=== PATIENT | male | born 1990 | race Caucasian/White ===

== ENCOUNTER 2021-01-01 08:13 | Emergency (ER) | payer OTHER, SELFPAY ==
--- NOTE | ~2021-01-01 | XR_ITS ---
EXAMINATION: XR chest 2V DATE: 01/01/2021 11:05 INDICATION: Shortness of breath TECHNIQUE: PA and lateral views of the chest were obtained. COMPARISON: None FINDINGS: The lungs are clear with no focal airspace opacities, pulmonary edema, pleural effusion or pneumothor ax. The cardiomediastinal silhouette is normal. Mild thoracic kyphosis with mild anterior wedging at T6, T7 and T12. IMPRESSION: 1. No acute cardiopulmonary disease. Reviewed, dictated and finalized at location A.
[2021-01-01 08:24] VITALS: BP 140/82; PULSE 71; RESP 20; TEMP 37.2; O2SAT 100
[2021-01-01 10:18] VITALS: BP 133/81; PULSE 71; RESP 15; O2SAT 95; O2SAT 96
[2021-01-01 10:34] LABS: Basophils Percent Auto 0.2 % (0.2-1.2); Eosinophils Absolute Auto 0.1 K/mm3 (0-0.3); Eosinophils Percent Auto 1.2 % (0-4.4); Hematocrit 46.6 % (42.0-52.0); Hemoglobin 16.2 g/dL (14.0-18.0); Immature Granulocyte Absolute 0.11 K/mm3 (0.00-0.031); Immature Granulocyte Percent A 1.1 % (0-0.5); Lymphocytes Absolute Auto 1.28 K/mm3 (0.9-3.2); Lymphocytes Percent Auto 13.2 % (18.3-44.2); Mean Corpuscular HGB Conc 34.8 g/dl (32-36); Mean Corpuscular Hemoglobin 29.7 pg (26-34); Mean Corpuscular Volume 85.3 fl (80-100); Mean Platelet Volume 9.5 fl (7.4-10.4); Monocytes Absolute Auto 0.5 K/mm3 (0.1-0.6); Neutrophils Absolute Auto 7.7 K/mm3 (1.3-6.7); Neutrophils Percent Auto 79.3 % (45.5-73.1); Platelet Count Result 201 k/mm3 (150-375); Red Blood Count 5.46 M/mm3 (4.6-6.20); White Blood Count 9.7 K/mm3 (4.5-10.0)
--- NOTE | 2021-01-01 10:40 | ED.URI ---
HPI - URI/Sore Throat General Chief Complaint: Upper Respiratory Infection Stated Complaint: fever, cough Time Seen by Provider: 01/01/21 09:53 Source: patient Mode of arrival: ambulatory Limitations: no limitations History of Present Illness HPI Narrative: Patient is a 30 year old male who presents with multiple symptoms. He reports initially feeling poorly with fever on Sat. and body aches. He reports chills and sweats. He reports dry cough, sore throat. He reports feeling slightly better on Tuesday with recurring symptoms with shortness of breath with exertion starting Tuesday. He reports being seen at and tested for strep, influenza and Covid with negative results. He reports chest xray negative but started on abx with concerns for pneumonia. Patient continues to reports intermittent fevers, dry cough and shortness of breath. He denies chest pain. He reports no known exposure to Covid but reports he is not vaccinated at this time. He denies significant medical history. He reports taking otc meds without relief. MD elicited complaint: fever, cough and other (shortness of breath) Review of Systems Review of Systems: Narrative: CONSTITUTIONAL: Reports fever, chills, sweats and generalized weakness. EYES: Denies visual changes, redness, or discharge. ENT: Denies rhinorrhea, congestion, reports sore throat that has now resolved CARDIOVASCULAR: Denies chest pain, palpitations, or edema. RESPIRATORY: Reports cough and dyspnea. GASTROINTESTINAL: Denies abdominal pain, nausea, vomiting, or diarrhea. GENITOURINARY: Denies dysuria or hematuria. SKIN: Denies rash or itching. MUSCULOSKELETAL: Denies back pain, joint pain, or myalgia. NEUROLOGIC: Denies headache, numbness, dizziness. PSYCHIATRIC: Denies anxiety or depression. [facility] Past Medical History Medical History (Updated 01/01/21 @ 12:39 by RICKEY Kiran) No significant past medical history Surgical History Surgical History (Updated 01/01/21 @ 10:46 by RICKEY Kiran) No significant past surgical history Family History Family History (Updated 01/01/21 @ 10:46 by RICKEY Kiran) Other Hypertension Social History Social History (Updated 01/01/21 @ 10:51 by RICKEY Kiran) Smoking status: Never smoker Alcohol intake: current Alcohol use details: social Substance use: never Living arrangements: with family Occupation/Education: occupation Gender identity (if verbalized by the patient): Male Exam Narrative: Exam Narrative: GENERAL: Well-appearing, well-nourished, and in no acute distress. HEAD: Normocephalic, atraumatic. EYES: EOMI. No redness or drainage. Conjunctiva are normal. ENT: Mucous membranes pink and moist. Throat normal. Uvula midline. NECK: AROM. Supple. No lymphadenopathy. CHEST: No respiratory distress. Clear to auscultation. HEART: Regular rate and rhythm. No murmur appreciated. Normal peripheral pulses. EXTREMITIES: Normal range of motion. No edema. SKIN: Warm, dry, no rash. NEURO: No focal deficits. Alert and oriented x3. Gait steady. PSYCH: Normal affect. No signs of depression or anxiety. Course Vital Signs Vital signs: Vital Signs Temperature 37.2 C 01/01/21 08:24 Pulse Rate 71 01/01/21 08:24 Respiratory Rate 20 01/01/21 08:24 Blood Pressure 140/82 01/01/21 08:24 Pulse Oximetry 100 01/01/21 08:24 Temperature 37.2 C 01/01/21 08:24 Pulse Rate 71 01/01/21 10:18 Respiratory Rate 15 01/01/21 10:18 Blood Pressure 133/81 01/01/21 10:18 Pulse Oximetry 95 01/01/21 10:18 Reviewed. Patient has been instructed to follow-up with his PCP regarding his blood pressure. MDM - URI/Sore Throat MDM Narrative Medical decision making narrative: Patient's labs are unremarkable, chest x-ray negative. Ambulates with O2 saturation greater than 94% on RA. Covid testing performed at this time. Discussed with patient quarantine until results. Discussed good hydration as well
[2021-01-01 10:42] LABS: INR 0.9; Prothrombin Time 12.8 Seconds (11.1-14.7)
[2021-01-01 10:43] LABS: Partial Thromboplastin Time 29.4 SECONDS (22.3-36.8)
[2021-01-01 10:45] LABS: Add Urine Microscopic? YES; Appearance Urine Clear (Clear); Bilirubin Urine Negative (Negative); Blood Urine Negative (Negative); Color Urine Yellow (Yellow); Glucose Urine UA Negative (Negative); Ketones Urine Negative (Negative); Leukocyte Esterase Ur Negative LEU/UL (Negative); Nitrate Urine Negative (Negative); Protein Urine 2+ mg/dL (Negative); Urobilinogen Urine Negative mg/dL (<2.0)
[2021-01-01 10:46] LABS: Alanine Aminotransferase 39 U/L (4-50); Albumin Level 4.5 g/dL (3.5-5.1); Alkaline Phosphatase 51 U/L (38-126); Anion Gap 11 mmol/L (8-16); Aspartate Amino Transferase 35 U/L (17-59); Bilirubin,Total 0.6 mg/dL (0.2-1.3); Blood Urea Nitrogen 16 mg/dL (9-20); Calcium 9.7 mg/dL (8.4-10.2); Carbon Dioxide 27 mmol/L (22-30); Chloride 106 mmol/L (98-107); Estimated CRCL calculation 117 ml/min; Estimated Glomerular Filt Rate > 60; Glucose 93 mg/dL (75-110); Potassium 3.8 mmol/L (3.4-5.0); Sodium 144 mmol/L (137-145)
[2021-01-01 10:46] LABS: Specific Grav Ur 1.032 (1.001-1.035); WBC Urine 0-3 /hpf (0-3)
[2021-01-01 10:48] LABS: D Dimer 0.27 ug/mL (<0.48)
[2021-01-01 10:57] LABS: Troponin I < 0.012 ng/mL (0.000-0.034)
[2021-01-01 12:13] LABS: NT Pro B Type Natriuretic Pept 38 pg/mL (5-100)
[2021-01-01 12:56] VITALS: BP 129/71; PULSE 70; RESP 24; O2SAT 95
[2021-01-01 18:42] LABS: SARS-CoV-2 RNA PCR Negative
== END 2021-01-01 12:59 | disposition home or self-care (01) ==
PROVIDERS: Emergency Provider Nurse Practitioner
DX: J06.9 Acute upper respiratory infection, unspecified (principal); Z20.822 Contact with and (suspected) exposure to COVID-19
CPT/HCPCS: 36415; 71046; 80053; 81001; 83880; 84484; 85025; 85380; 85610; 85730; 99284; C9803; U0003; U0005